=== PATIENT | male | born 1970 | race Caucasian/White ===

== ENCOUNTER 2018-04-21 08:07 | Outpatient (CLI) | payer BC ==
[2018-04-21 09:55] LABS: #Eosinphils 0.2 thou/uL (0.0-0.7); #Lymphocytes 1.4 thou/uL (1.20-3.40); #Monocytes 0.6 thou/uL (0.11-0.59); #Neutrophils 2.1 thou/uL (1.40-6.50); %Basophils 1.1 % (0.0-1.0); %Eosinophils 4.5 % (0.0-10.0); %Lymphocytes 31.7 % (21.0-51.0); %Monocytes 13.7 % (0.0-10.0); Mean Corpuscular HGB CONC 35.1 g/dL (32.0-36.0); Mean Corpuscular Hemoglobin 28.8 pg (27.0-31.0); Mean Corpuscular Volume 82.2 fL (78.0-98.0); Mean Platelet Volume 8.6 fL (7.4-10.4); Platelet Count 176 thou/uL (130-400); RBC Distribution Width 11.8 % (11.5-14.5); White Blood Cell (WBC) Count 4.4 thou/uL (4.8-10.8)
[2018-04-21 10:03] LABS: Bilirubin Negative (Negative); Blood, Urine Small (Negative); Clarity CLEAR (Clear); Glucose, Urine (Dipstick) Negative (Negative); Leukocyte Trace (Negative); Nitrite Negative (Negative); Protein, Urine (Dipstick) Negative (Neg-Trace); Specific Gravity, Urine 1.006 (1.002-1.036); Urobilinogen 0.2 mg/dL (0.2-1.0); pH, Urine 6.5 (5.0-9.0)
[2018-04-21 10:05] LABS: Bacteria/HPF None Seen HPF (None Seen); Hyaline Casts/LPF 0-3 HYALINE CAST LPF (0-3 Hyaline); Pathc Cast-AUWi Flag 0.14 (0-2.49); RBC/HPF 0-3 HPF (0-3); Squamous Epithelial None Seen HPF (0-3); WBC/HPF 0-3 HPF (0-3)
[2018-04-21 10:14] LABS: Anion Gap 10 mmol/L (10-20); BUN (Urea Nitrogen) 18 mg/dL (8.9-20.6); Calc. Creatinine Clearance 0 mL/min (70-130); Calcium 9.5 mg/dL (7.8-10.44); Carbon Dioxide 27 mmol/L (22-29); Chloride 105 mmol/L (98-107); Estimated GFR-MDRD 69; Glucose 100 mg/dL (70-105); INR-International Normal Ratio 0.9; PTT 32.1 SEC (22.9-36.1); Potassium 3.8 mmol/L (3.5-5.1); Prothrombin Time 12.7 SEC (12.0-14.7); Sodium 138 mmol/L (136-145)
--- NOTE | 2018-04-22 18:50 | EKG ---
Test Reason : Blood Pressure : / mmHG Vent. Rate : 079 BPM Atrial Rate : 079 BPM P-R Int : 148 ms QRS Dur : 094 ms QT Int : 380 ms P-R-T Axes : 054 001 010 degrees QTc Int : 435 ms Normal sinus rhythm Normal ECG No previous ECGs available Confirmed by Gopi ROSENTHAL ([id number]) on 04/22/2018 6:49:50 PM Referred By: CAROLINA Confirmed By:Gopi ROSENTHAL
== END 2018-04-21 08:08 | disposition home or self-care (01) ==
LOC: LABBT 08:07
PROVIDERS: ATTEND Urology
DX: Z01.818 Encounter for other preprocedural examination (principal); N20.0 Calculus of kidney
CPT/HCPCS: 80048; 81001; 85025; 85610; 85730; 87086; 93005; 93010

== ENCOUNTER 2018-04-28 06:48 | Day surgery (SDC) | payer BC ==
[2018-04-21 08:36] VITALS: BMI 33.0
[2018-04-28] MEDS ORDERED: Levofloxacin 500 mg/D5W 100 ml Premix Bag ONE (10:06)
[2018-04-28] MEDS ORDERED: Midazolam HCl 2 mg/2 ml Vial ONE (11:17)
[2018-04-28] MEDS ORDERED: Fentanyl 100 MCG/2 ML VIAL ONE (11:20)
[2018-04-28] MEDS ORDERED: Iothalamate Meglumine 60% 50 ML VIAL FS ONE (11:42)
[2018-04-28] MEDS ORDERED: Oxybutynin 5 MG TAB ONE (13:09)
[2018-04-28] MEDS ORDERED: Phenazopyridine HCl 97.5 MG TABLET ONE ×2 (13:10)
[2018-04-28] MEDS ORDERED: PROPOFOL 200 MG/20 ML VIAL ONE (13:51)
[2018-04-28] MEDS ORDERED: Ketorolac Tromethamine 30 MG/ML VIAL ONE (13:51)
[2018-04-28] MEDS ORDERED: Lidocaine 1% PF 5 ML VIAL ONE (13:51)
[2018-04-28] MEDS ORDERED: Dexamethasone 20 MG/5 ML VIAL ONE (13:51)
[2018-04-28] MEDS ORDERED: Ondansetron PF 4 MG/2 ML Vial ONE (13:51)
[2018-04-28] MEDS ORDERED: Glycopyrrolate 0.2 MG/ML 5 ML SYRINGE ONE (13:51)
--- NOTE | 2018-04-28 19:05 | OP ---
DATE OF PROCEDURE: 04/28/2018 SERVICE: Urology. PREOPERATIVE DIAGNOSIS: Right renal stone. POSTOPERATIVE DIAGNOSIS: Right renal stone. PROCEDURES PERFORMED: Right ureteroscopy, laser lithotripsy, basket extraction of stone, and placement of a 6 x 28 double-J stent. INDICATION FOR PROCEDURE: Mr. Weiss is a 48-year-old white male, who presented with right flank pain. CT demonstrated a 17-mm right renal pelvis stone. Since he was symptomatic and the stone was very large, we recommended treatment with ureteroscopy. Risks and benefits were discussed and he has agreed to proceed forward. DESCRIPTION OF PROCEDURE: After identification of arm band and verification of consent, the patient was brought back to the operating room, where he underwent general anesthesia with endotracheal intubation. He was then placed in dorsal lithotomy position, and prepped and draped in the usual sterile fashion. After appropriate time-out, a lubricated 22-Indonesian rigid cystoscope was introduced per urethra into the bladder. Attention was turned to the right ureteral orifice, which was cannulated with the 0.035 Sensor wire up to the level of the renal pelvis. The stone was immediately visible on fluoroscopy. The cystoscope was then removed and a dual-lumen catheter was advanced over the Sensor wire up to the level of the proximal ureter. An Amplatz Super Stiff wire was then advanced through the second lumen of the dual-lumen catheter up to the level of renal pelvis. The dual-lumen was then removed and a Sensor wire was affixed to the drapes as a safety wire. An 11/13 x 46 cm ureteral access sheath was advanced over the Super Stiff wire up to the level of the proximal ureter. The inner cannula and the Super Stiff wire were then removed, leaving the outer sheath and Sensor wire in place as a safety wire. A disposable digital ureteroscope was then used to pass through the ureteral access sheath into the renal pelvis where the stone was immediately visible. A 365 micron laser fiber was then used to fragment the stone on the dusting setting into very small pieces. There were several larger pieces, which were basketed out using a 1.9-Indonesian ZeroTip Nitinol basket. The remaining pieces were popcorned using the dusting setting on the laser fiber until it was an extremely fine dust and no other large piece was seen. The pieces were probably in the range of 1 mm and at the most 2 mm, but most were in the submillimeter range. Satisfied that all the large pieces had been removed and there were no large pieces left, a full pyeloscopy was performed and no additional larger stones were found. The ureteroscope was then withdrawn using pull-back ureteroscopy and no additional stones were seen within the ureter. The rigid cystoscope was then advanced back over the Sensor wire back into the bladder and a 6 x 28 double-J stent was advanced over the Sensor wire up to the level of renal pelvis. The wire was then removed, leaving a good curl in the renal pelvis and good curl in the bladder. The bladder was then emptied and the cystoscope removed. The patient was then awakened, taken to PACU for recovery in stable condition. COMPLICATIONS: None. ESTIMATED BLOOD LOSS: Minimal. RETAINED TUBES AND DRAINS: 6 x 28 double-J stent on the right. SPECIMEN: Stone for stone analysis. DISPOSITION: The patient will be discharged home and follow up with me in 1 week for cysto and stent removal. Job ID: [id number]
[2018-05-02 16:14] LABS: CA Oxalate Dihydrate 25 % (.); CA Oxalate Monohydrate 65 % (.); CA Phosphate 10 % (.); Color Tan (.); Stone Weight 85.3 mg (.)
== END 2018-04-28 13:39 | disposition home or self-care (01) ==
LOC: SDC 06:48
PROVIDERS: ATTEND Urology
PROC: 0TF38ZZ Fragmentation in Right Kidney Pelvis, Via Natural or Artificial Opening Endoscopic (ICD-10-PCS; principal; 2018-04-28)
PROC: 0T768DZ Dilation of Right Ureter with Intraluminal Device, Via Natural or Artificial Opening Endoscopic (ICD-10-PCS; principal; 2018-04-28)
DX: N20.0 Calculus of kidney (principal)
CPT/HCPCS: 51798; 74420; 76000; 82365; 88300; C1769; J1956; J2250; J3010; Q9961

== ENCOUNTER 2019-03-05 11:08 | Inpatient (IN) | payer BC ==
[2019-03-05 12:13] LABS: #Basophils 0.1 thou/uL (0.0-0.2); #Eosinphils 0.1 thou/uL (0.0-0.7); #Lymphocytes 1.5 thou/uL (1.20-3.40); #Monocytes 0.9 thou/uL (0.11-0.59); #Neutrophils 4.6 thou/uL (1.40-6.50); %Basophils 0.8 % (0.0-1.0); %Lymphocytes 20.5 % (21.0-51.0); %Monocytes 12.6 % (0.0-10.0); %Neutrophils 64.1 % (42.0-75.0); Hemoglobin 14.3 g/dL (14.0-18.0); Mean Corpuscular HGB CONC 34.5 g/dL (32.0-36.0); Mean Corpuscular Hemoglobin 28.5 pg (27.0-31.0); Mean Corpuscular Volume 82.7 fL (78.0-98.0); Mean Platelet Volume 9.2 fL (7.4-10.4); Platelet Count 154 thou/uL (130-400); RBC Distribution Width 11.9 % (11.5-14.5); Red Blood Cell (RBC) Count 5.01 mill/uL (4.70-6.10); White Blood Cell (WBC) Count 7.2 thou/uL (4.8-10.8)
[2019-03-05 12:26] LABS: ALT (SGPT) 20 U/L (8-55); AST (SGOT) 22 U/L (5-34); Albumin 4.3 g/dL (3.5-5.0); Alkaline Phosphatase 78 U/L (40-110); Anion Gap 15 mmol/L (10-20); BUN (Urea Nitrogen) 13 mg/dL (8.9-20.6); Bilirubin, Total 0.8 mg/dL (0.2-1.2); Calc. Creatinine Clearance 0 mL/min (70-130); Calcium 9.4 mg/dL (7.8-10.44); Carbon Dioxide 23 mmol/L (22-29); Chloride 106 mmol/L (98-107); Estimated GFR-MDRD 56; Globulin 2.7 g/dL (2.4-3.5); Glucose 100 mg/dL (70-105); Potassium 4.3 mmol/L (3.5-5.1); Sodium 140 mmol/L (136-145)
--- NOTE | 2019-03-05 12:39 | ULT ---
RIGHT UPPER EXTREMITY VENOUS DUPLEX EXAM: Ultrasound Doppler study is performed on the venous structures of the right upper extremity with colo r Doppler, spectral analysis, and compression studies. INDICATION: Right upper extremity pain and edema. FINDINGS: Right internal jugular vein shows normal flow and compression. The right subclavian vein shows bill l blood flow with Doppler study. The right axillary vein, cephalic vein, brachial vein, ulnar vein, and radial vein are all evaluated. These veins show normal blood flow and compression. No evidence of venous thrombosis. IMPRESSION: No evidence of right upper extremity venous thrombosis. POS: [facility]
[2019-03-05] MEDS ORDERED: Clindamycin/D5W 900 mg/50 ml Premix Bag ONE (12:40)
[2019-03-05] MEDS ORDERED: Piperacillin/Tazobactam 4.5 GM VIAL ONE (13:19)
[2019-03-05] MEDS ORDERED: HYDROcodone/Acetaminophen 5/325 mg Tablet PO PRN ×3 (14:42→18:02)
[2019-03-05 15:00] VITALS: BMI 35.2
[2019-03-05] MEDS ORDERED: Vancomycin HCl 1.5 GM in Sodium Chloride 0.9% 250 ML 300 ML IVPB SCH (15:00)
[2019-03-05] MEDS ORDERED: Calcium Carbonate 500 MG ChewTAB PO PRN (18:02)
[2019-03-05] MEDS ORDERED: Ondansetron PF 4 MG/2 ML Vial IVP PRN (18:02)
[2019-03-05] MEDS ORDERED: hydrALAZINE 25 MG TAB PO PRN (18:02)
[2019-03-05] MEDS ORDERED: Acetaminophen 325 MG TAB PO PRN (18:02)
[2019-03-05] MEDS ORDERED: Ondansetron ODT 4 MG TAB PO PRN (18:02)
[2019-03-05] MEDS: cefTRIAXone\\ROCEPHIN 1 GM in Sodium Chloride 0.9% 100 ML IVPB SCH (19:40)
[2019-03-05] MEDS ORDERED: Piperacillin/Tazobactam 4.5 GM in Sodium Chloride 0.9% 100 ML IVPB SCH (20:00)
[2019-03-05] MEDS ORDERED: Clindamycin/D5W 900 MG in Premix Bag 1 BAG IVPB SCH (22:00)
--- NOTE | 2019-03-05 23:35 | HP ---
PRIMARY CARE PHYSICIAN: Demetri Walsh MD CHIEF COMPLAINT: Swelling in the right arm. HISTORY OF PRESENT ILLNESS: Mr. Weiss is a pleasant 48-year-old gentleman, who has no previous past medical history. He says that about a week ago, he noticed some swelling in his right elbow and he says he noticed that it was a little bit more difficult to bend. He says that after a couple of days, it actually seemed to get better and then on , the pain got worse and it was hard to bend his arm again. He started having some chills as well. He went to the outpatient clinic, where they prescribed Bactrim. He took this for 2 days and noticed that there was not much improvement and in fact, the redness seemed to go further up into his arm and he still had some difficulty bending his arm and as a result, the physician there recommended that he go to the emergency room for evaluation. He denies any nausea, no vomiting. No overt fever. He denies any type of trauma or irritation to the arm that he is aware of, and he has never had anything like this to happen to him before. REVIEW OF SYSTEMS: All systems were reviewed and are negative except for that mentioned in the history of present illness. PAST MEDICAL HISTORY: Negative. PAST SURGICAL HISTORY: He has had kidney stone removal. ALLERGIES: NO KNOWN DRUG ALLERGIES. SOCIAL HISTORY: He is . 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 He is a nonsmoker and nondrinker. CODE STATUS: Full code. FAMILY HISTORY: Significant for hypertension and COPD in his father. CURRENT MEDICATIONS: 1. Bactrim DS. 2. Advil. PHYSICAL EXAMINATION: GENERAL: He is alert and oriented. He appears to be in no acute distress. VITAL SIGNS: Blood pressure is 123/77, heart rate 83, respiratory rate is 16, temperature is 97.8. HEENT: Pupils are equal, round, and reactive. Extraocular muscles are intact. His sclerae are anicteric. Throat, there is no erythema, no exudates. NECK: No adenopathy. No bruits. LUNGS: Clear to auscultation. There is no wheezing, no rales, no rhonchi. CARDIOVASCULAR: He has a normal S1, S2. There is no S3 or S4. No murmurs, clicks, or rubs. ABDOMEN: Obese. It is soft, nontender, and nondistended. Positive bowel sounds. There is no rebound, no guarding, no organomegaly. EXTREMITIES: There is no clubbing, cyanosis, or edema on the lower extremities. However, on the right upper arm and forearm, he has some swelling, which appears to be localized around the elbow and extends into the forearm and back into the upper arm, primarily on the medial aspect. The area is erythematous and slightly warm. He has good radial and ulnar pulses and good capillary refill in the fingertips and he is able to make a fist and can extend and bend his right upper extremity. NEUROLOGIC: The exam is grossly nonfocal. LABORATORY DATA: White blood cell count 7.2, hemoglobin 14.3, hematocrit is 41.4, and platelet count is 154. Sodium 140, potassium 4.3, chloride is 106, CO2 is 23, BUN of 13, creatinine 1.37, glucose is 100. He had a venous ultrasound, which was negative for DVT. ASSESSMENT: This is a pleasant 48-year-old gentleman, who had failed outpatient treatment for cellulitis. He will be admitted and started empirically on IV antibiotics. We will cover for strep and Staph including methicillin-resistant Staph as these are the most likely culprit. We will compare the arms to how it looks today and watch for signs of developing a deep infection such as an abscess or fasciitis, which there is no evidence of this currently. Hopefully, if his arm appearance is improved and there is no fever or elevation in white blood cell count overnight, then likely he can be discharged home within a day or two. Job ID: [id number]
[2019-03-06] MEDS: Vancomycin HCl 1.5 GM in Sodium Chloride 0.9% 250 ML 300 ML IVPB SCH ×2 (03:18→14:47)
[2019-03-06 06:07] LABS: #Eosinphils 0.2 thou/uL (0.0-0.7); #Lymphocytes 1.6 thou/uL (1.20-3.40); #Monocytes 0.6 thou/uL (0.11-0.59); #Neutrophils 2.6 thou/uL (1.40-6.50); %Basophils 0.9 % (0.0-1.0); %Eosinophils 4.6 % (0.0-10.0); %Lymphocytes 31.3 % (21.0-51.0); %Monocytes 12.4 % (0.0-10.0); %Neutrophils 50.8 % (42.0-75.0); Hemoglobin 12.8 g/dL (14.0-18.0); Mean Corpuscular HGB CONC 34.2 g/dL (32.0-36.0); Mean Corpuscular Hemoglobin 28.6 pg (27.0-31.0); Mean Corpuscular Volume 83.8 fL (78.0-98.0); Mean Platelet Volume 8.6 fL (7.4-10.4); Platelet Count 152 thou/uL (130-400); RBC Distribution Width 11.7 % (11.5-14.5); Red Blood Cell (RBC) Count 4.46 mill/uL (4.70-6.10); White Blood Cell (WBC) Count 5.2 thou/uL (4.8-10.8)
[2019-03-06 06:34] LABS: Anion Gap 12 mmol/L (10-20); BUN (Urea Nitrogen) 12 mg/dL (8.9-20.6); Calc. Creatinine Clearance 111 mL/min (70-130); Calcium 8.6 mg/dL (7.8-10.44); Carbon Dioxide 22 mmol/L (22-29); Chloride 106 mmol/L (98-107); Estimated GFR-MDRD 61; Glucose 97 mg/dL (70-105); Sodium 136 mmol/L (136-145)
[2019-03-06] MEDS: Saccharomyces boulardii 250 MG CAP PO SCH (08:57)
[2019-03-06] MEDS: cefTRIAXone\\ROCEPHIN 1 GM in Sodium Chloride 0.9% 100 ML IVPB SCH (17:07)
--- NOTE | 2019-03-06 18:21 | PDOC.HOSPP ---
- Subjective Encounter Date: 03/06/19 Encounter Time: 15:00 Subjective: Mr. Weiss was seen today in follow-up of right upper extremity cellulitis. He notes some improvement, but has noted a dense swelling on the tip of the elbow. - Objective Vital Signs & Weight: Vital Signs (12 hours) Temp Pulse Resp BP BP Pulse Ox 03/06/19 16:19 98.6 F 77 16 111/78 97 03/06/19 11:18 97.7 F 78 16 111/74 97 03/06/19 07:35 98.4 F 71 16 115/79 96 Weight Weight 239 lb I&O: 03/05/19 03/06/19 03/07/19 06:59 06:59 06:59 Intake Total 240 880 Balance 240 880 Result Diagrams: 03/06/19 05:30 03/06/19 05:30 Hospitalist ROS - Medication Medications: Active Medications Generic Name Dose Route Start Last Admin Trade Name Freq PRN Reason Stop Dose Admin Ceftriaxone Sodium 1 gm/ 100 mls @ 200 mls/hr 03/05/19 18:00 03/06/19 17:07 Sodium Chloride IVPB 100 mls Q24HR IRVING Administration Vancomycin HCl 1.5 gm/ Sodium 300 mls @ 200 mls/hr 03/06/19 03:00 03/06/19 14 :47 Chloride IVPB 300 mls 0300,1500 IRVING Administration Saccharomyces Boulardii 250 mg 03/06/19 09:00 03/06/19 08:57 Florastor PO 250 mg DAILY IRVING Administration - Exam Eye: PERRL, anicteric sclera Heart: RRR, no murmur, no gallops, no rubs, normal peripheral pulses Respiratory: CTAB, no wheezes, no rales, no ronchi, normal chest expansion, no tachypnea, normal percussion Gastrointestinal: soft, non-tender, non-distended, normal bowel sounds, no palpable masses, no hepatomegaly, no splenomegaly Extremities: no cyanosis (+ swelling of the right upper extremity, with improvement from yesterday, good radial and ulnar pulses,) Hosp A/P (1) Cellulitis of right arm Code(s): L03.113 - CELLULITIS OF RIGHT UPPER LIMB Status: Acute - Plan * Cellulitis of the right arm- much improved from yesterday- but will continue IV antibiotics at least one more day and re-assess. * Will watch for development of a deep infection such as an abscess.
[2019-03-07 03:01] LABS: Vancomycin, Trough 11.3 ug/mL
[2019-03-07] MEDS: Vancomycin HCl 1.5 GM in Sodium Chloride 0.9% 250 ML 300 ML IVPB SCH (03:32)
[2019-03-07] MEDS ORDERED: Vancomycin HCl 1.75 GM in Sodium Chloride 0.9% 500 ML IVPB SCH (04:00)
[2019-03-07] MEDS: Saccharomyces boulardii 250 MG CAP PO SCH (08:38)
--- NOTE | 2019-03-07 14:43 | PDOC.HOSPP ---
- Subjective Encounter Date: 03/07/19 Encounter Time: 14:41 Subjective: Mr. Weiss was seen today in follow-up of cellulitis of the right upper extremity.He notes improvement. - Objective Vital Signs & Weight: Vital Signs (12 hours) Temp Pulse Resp BP Pulse Ox 03/07/19 11:08 97.6 F 83 18 115/80 95 03/07/19 08:41 97 03/07/19 07:45 97.7 F 67 18 115/77 97 03/07/19 04:00 98.4 F 77 20 107/71 96 Weight Weight 239 lb I&O: 03/06/19 03/07/19 03/08/19 06:59 06:59 06:59 Intake Total 240 2060 Balance 240 2060 Result Diagrams: 03/06/19 05:30 03/06/19 05:30 Hospitalist ROS - Medication Medications: Active Medications Generic Name Dose Route Start Last Admin Trade Name Freq PRN Reason Stop Dose Admin Ceftriaxone Sodium 1 gm/ 100 mls @ 200 mls/hr 03/05/19 18:00 03/06/19 17:07 Sodium Chloride IVPB 100 mls Q24HR IRVING Administration Vancomycin HCl 1.75 gm/ Sodium 500 mls @ 250 mls/hr 03/07/19 04:00 03/07/19 04:54 Chloride IVPB 500 mls 0400,1600 IRVING Administration Saccharomyces Boulardii 250 mg 03/06/19 09:00 03/07/19 08:38 Florastor PO 250 mg DAILY IRVING Administration - Exam Eye: PERRL, anicteric sclera Heart: RRR, no murmur, no gallops, no rubs, normal peripheral pulses Respiratory: CTAB, no wheezes, no rales, no ronchi, normal chest expansion Gastrointestinal: soft, non-tender, non-distended, normal bowel sounds, no palpable masses Extremities: 1+ LE edema (+ erythema in right upper extremities) Hosp A/P (1) Cellulitis of right arm Code(s): L03.113 - CELLULITIS OF RIGHT UPPER LIMB Status: Acute - Plan * Cellulitis of the right arm- much improved from yesterday * Stable for discharge home
[2019-03-07 15:57] VITALS: BP 118/80; TEMP 97.7
--- NOTE | 2019-03-08 02:56 | DIS ---
DATE OF ADMISSION: 03/05/2019 DATE OF DISCHARGE: 03/07/2019 PRIMARY CARE PHYSICIAN: Demetri Walsh MD DISCHARGE DISPOSITION: Home. DISCHARGE DIAGNOSIS: Cellulitis of the right upper extremity. DISCHARGE MEDICATIONS: Include: 1. Clindamycin 300 mg q.6 hours for 10 days, as well as rifampin 150 mg twice a day for 10 days. 2. Florastor 250 mg daily. IMAGING DURING THE HOSPITAL STAY: The patient had a vascular ultrasound in which there was no evidence of right upper extremity venous thrombosis. CODE STATUS: Full code. ALLERGIES: NO KNOWN DRUG ALLERGIES. HOSPITAL COURSE: Mr. Weiss is a pleasant 48-year-old gentleman, who was admitted to the hospital for failed outpatient treatment of cellulitis. The full details of which are outlined in the history and physical. The patient had an upper extremity ultrasound to rule out DVT. Clinically, there was no evidence of deep infection. He was started on vancomycin and Rocephin and did very well over the course of the next couple of days. Once there was considerable improvement, he was able to be discharged home to have close outpatient followup. Job ID: [id number]
== END 2019-03-07 16:00 | disposition home or self-care (01) | DRG 603 ==
LOC: SCSER 11:08 → T4-A 13:08
PROVIDERS: ADMIT Internal Medicine; ATTEND Internal Medicine
DX: L03.115 Cellulitis of right lower limb (principal); Z87.442 Personal history of urinary calculi; R40.2412 Glasgow coma scale score 13-15, at arrival to emergency department
CPT/HCPCS: 36415; 80048; 80053; 80202; 83605; 85025; 87040; 96365; 96367; J0696; J2543; J3370; J3490; J7050

== ENCOUNTER 2023-02-15 14:27 | Outpatient (CLI) | payer BC | END 2023-02-15 14:28 | disposition home or self-care (01) | LOC: SCSRAD 14:27 | PROVIDERS: ATTEND Family Medicine | DX: M25.551 Pain in right hip (principal) ==